=== PATIENT | male | born 1965 | race Caucasian/White ===

== ENCOUNTER 2021-09-28 17:15 | Emergency (ER) | payer OTHER, BC ==
[2021-09-28 17:30] VITALS: BMI 24.5
[2021-09-28] MEDS ORDERED: ALBUTEROL SO4 2.5/IPRATROPIUM 0.5 INH SOL 3 ML VIAL.NEB. NEB ONE ×4 (18:00→18:41)
[2021-09-28 18:31] LABS: BASO % 0.9 % (0-2.0); EOS % 4.9 % (0-4.5); HEMATOCRIT 41.7 % (35.4-49); HEMOGLOBIN 14.2 GM/dL (11.7-16.9); LYMPH % 17.8 % (8-40); MCH 31.4 pg (25.7-33.7); MCHC 34.2 g/dl (32.0-35.9); MEAN CELL VOLUME 91.9 fl (80-96); MEAN PLT VOLUME 7.3 fl (7.5-11.1); MONO % 6.9 % (3.8-10.2); NEUT % 69.5 % (42.8-82.8); PLATELET COUNT 386 10^3/uL (134-434); RBC 4.53 M/mm3 (4.00-5.60); RDW 13.1 % (11.9-15.9); WHITE BLOOD COUNT 11.9 K/mm3 (4.0-10.0)
[2021-09-28 18:55] LABS: CALCIUM 9.1 mg/dL (8.5-10.1)
[2021-09-28 18:56] LABS: ALBUMIN 3.5 g/dl (3.4-5.0); BLOOD UREA NITROGEN 13.9 mg/dL (7-18)
[2021-09-28 18:59] LABS: CREATININE 0.8 mg/dL (0.55-1.3)
[2021-09-28 19:01] LABS: BILIRUBIN,TOTAL 0.3 mg/dL (0.2-1)
[2021-09-28 19:04] LABS: N-TERMINAL BNP 46.8 pg/ml (5-125)
[2021-09-28 21:24] VITALS: BP 128/75; PULSE 79; RESP 18; TEMP 98.1
== END 2021-09-28 21:39 | disposition home or self-care (01) ==
LOC: JER 17:15
PROC: 3E0F7GC Introduction of Other Therapeutic Substance into Respiratory Tract, Via Natural or Artificial Opening (ICD-10-PCS; principal; 2021-09-28)
PROC: 3E0F7GC Introduction of Other Therapeutic Substance into Respiratory Tract, Via Natural or Artificial Opening (ICD-10-PCS; 2021-09-28)
DX: J18.9 Pneumonia, unspecified organism (principal)
CPT/HCPCS: 0241U-QW; 36415; 80053; 83880; 84484; 85025; 93005; 93010; 99284-25

== ENCOUNTER 2021-10-27 12:29 | Inpatient (IN) | payer BC, OTHER ==
[2021-10-27 12:40] VITALS: TEMP 97.6; BMI 24.3
[2021-10-27] MEDS ORDERED: VANCOMYCIN 1 GM in D5W (PRE-DOCKED) 1,000 MG/250 ML IVPB ONE (13:49)
[2021-10-27] MEDS ORDERED: PIPERACILLIN/TAZOB 4.5 GM 4.5 GM in DEXTROSE 5%-WATER 100 ML IVPB ONE (13:49)
[2021-10-27] MEDS ORDERED: SODIUM CHLORIDE 0.9% 500 ML INFUS.BAG IV ONE (13:50)
[2021-10-27] MEDS ORDERED: PIPERACILLIN/TAZOB 4.5 GM 4.5 GM/100 ML BAG IVPB ONE (14:25)
[2021-10-27] MEDS ORDERED: VANCOMYCIN/WATER FOR INJ (PEG) 1,000 MG/200 ML BAG IVPB ONE (14:25)
[2021-10-27 14:40] LABS: VENOUS BASE EXCESS 2.4 mmol/L (-2-2); VENOUS O2 SATURATION 49.9 % (70-80); VENOUS PCO2 44.5 mmHg (38-52); VENOUS PH 7.408 (7.310-7.410)
[2021-10-27] MEDS ORDERED: IPRATROPIUM BR 0.02% 0.5 MG/2.5 ML VIAL.NEB. NEB ONE ×2 (14:41→14:56)
[2021-10-27] MEDS ORDERED: LIDOCAINE VISCOUS 2% ORAL/TOP 15 ML UNIT-DOSE CUP MM ONE ×2 (14:42→15:02)
[2021-10-27 14:49] LABS: BASO % 0.3 % (0-2.0); HEMATOCRIT 38.9 % (35.4-49); HEMOGLOBIN 12.8 GM/dL (11.7-16.9); LYMPH % 4.5 % (8-40); MCH 30.9 pg (25.7-33.7); MEAN CELL VOLUME 93.8 fl (80-96); MEAN PLT VOLUME 8.2 fl (7.5-11.1); MONO % 5.4 % (3.8-10.2); NEUT % 89.8 % (42.8-82.8); PLATELET COUNT 548 10^3/uL (134-434); RBC 4.15 M/mm3 (4.00-5.60); RDW 13.5 % (11.9-15.9); WHITE BLOOD COUNT 19.3 K/mm3 (4.0-10.0)
[2021-10-27] MEDS ORDERED: LIDOCAINE VISCOUS 2% ORAL/TOP 15 ML UNIT-DOSE CUP ONE (14:56)
[2021-10-27] MEDS ORDERED: BENZOCAINE/MENTH/CETYLPYRD CL 1 EACH LOZENGE MM PRN (15:01)
[2021-10-27 15:14] LABS: CALCIUM 9.1 mg/dL (8.5-10.1)
[2021-10-27 15:15] LABS: BLOOD UREA NITROGEN 20.8 mg/dL (7-18); MAGNESIUM 2.1 mg/dL (1.8-2.4)
[2021-10-27 15:18] LABS: CREATININE 0.9 mg/dL (0.55-1.3); PHOSPHOROUS 3.1 mg/dL (2.5-4.9)
[2021-10-27 15:19] LABS: BILIRUBIN,TOTAL 0.6 mg/dL (0.2-1); TOT PROT 6.8 g/dl (6.4-8.2)
[2021-10-27 15:22] LABS: N-TERMINAL BNP 343.4 pg/ml (5-125)
[2021-10-27] MEDS ORDERED: SODIUM CHLORIDE 1,000 ML IV SCH (17:30)
[2021-10-27] MEDS ORDERED: CEFEPIME 2 GM in DEXTROSE 5%-WATER 100 ML IVPB SCH ×2 (18:00)
[2021-10-27] MEDS ORDERED: CEFEPIME 2 GM/100 ML BAG IVPB ONE (18:37)
[2021-10-27] MEDS ORDERED: BENZOCAINE/MENTH/CETYLPYRD CL 1 EACH LOZENGE MM ONE (20:39)
[2021-10-27 21:07] VITALS: BP 149/88
[2021-10-27 21:28] VITALS: PULSE 118; RESP 25
[2021-10-28] MEDS ORDERED: VANCOMYCIN/WATER FOR INJ (PEG) 1,000 MG/200 ML BAG IVPB SCH ×2 (02:00)
== END 2021-10-27 21:29 | disposition short-term general hospital (02) | DRG 194 ==
LOC: JER 12:29 → JERBED 12:59
PROVIDERS: ADMIT Internal Medicine; ATTEND Internal Medicine
DX: J18.9 Pneumonia, unspecified organism (principal); I31.3 Pericardial effusion (noninflammatory); J90 Pleural effusion, not elsewhere classified; K21.9 Gastro-esophageal reflux disease without esophagitis; R06.02 Shortness of breath; R07.0 Pain in throat; R00.0 Tachycardia, unspecified
CPT/HCPCS: 0241U-QW; 36415; 70490-TC; 71045-TC-FY; 71275-TC; 80053; 82803; 83735; 83880; 84100; 84484; 85025; 85379; 87040; 93005; 93010; 99285-25; Q9967